=== PATIENT | female | born 1960 | race Caucasian/White ===

== ENCOUNTER 2021-07-05 21:22 | Emergency (ER) | payer OTHER ==
[~2021-07-05] VITALS: Ht 175.3 cm; Wt 100.0 kg
[2021-07-06] MEDS ORDERED: BACTRIM DS1 TAB PO (00:11)
[2021-07-06 00:20] VITALS: BP 130/62
== END 2021-07-06 00:21 | disposition home or self-care (01) ==
LOC: ED 21:22
DX: L03.115 Cellulitis of right lower limb (principal); S80.811A Abrasion, right lower leg, initial encounter; G62.0 Drug-induced polyneuropathy; T45.1X5S Adverse effect of antineoplastic and immunosuppressive drugs, sequela; W17.2XXA Fall into hole, initial encounter; Z85.3 Personal history of malignant neoplasm of breast

== ENCOUNTER 2022-09-02 20:28 | Emergency (ER) | payer MEDICARE, OTHER ==
[2022-09-02] VITALS (10 sets, daily range): BP systolic 109–135; BP diastolic 53–79
[~2022-09-02] VITALS: Ht 175.3 cm; Wt 104.0 kg
[~2022-09-02 20:28] MED LIST: ANASTROZOLE1 MG PO; BACLOFEN5 MG PO; BACTRIM DS1 TAB PO; CYMBALTA60 MG PO; LYRICA150 MG PO; OXYCODO-APAP1 TA2 PO; PROAIR HFA108 MCG/AC PO; WOMEN PO
[2022-09-02 21:35] LABS: HEMATOCRIT 39.2 % (37.0-47.0); HEMOGLOBIN 12.8 g/dl (12.0-16.0); IMMATURE GRANULOCYTES 0.2 % (0.0-5.0); MEAN CELL VOLUME 86.9 fL CALC (80.0-100.0); MEAN CORPUSCULAR HGB 28.4 pG CALC (26.0-32.0); MEAN CORPUSCULAR HGB CONC 32.7 g/dL CAL (32.0-36.0); NEUT# 4.57 thou/uL (2.00-7.15); RED BLOOD COUNT 4.51 mill/uL (4.20-5.60); RED CELL DISTRI WIDTH 13.1 % (11.5-15.5)
[2022-09-02 21:41] LABS: URINE BILIRUBIN - DIPSTICK NEGATIVE (NEGATIVE); URINE BLOOD DIPSTICK NEGATIVE (NEGATIVE); URINE COLOR YELLOW; URINE GLUCOSE - DIPSTICK NEGATIVE (NEGATIVE); URINE KETONE NEGATIVE (NEGATIVE); URINE LEUK ESTERASE NEGATIVE (NEGATIVE); URINE PROTEIN - DIPSTICK NEGATIVE (NEG-TRACE); URINE UROBILINOGEN - DIPSTICK 0.2 E.U./dL (0.2)
[2022-09-02 21:43] LABS: URINE NITRITE - DIPSTICK NEGATIVE (Negative)
[2022-09-02 21:52] LABS: ALBUMIN 4.5 g/dL (3.2-5.0); ALKALINE PHOSPHATASE 75 u/l (38-126); ANION GAP 15 (6-22 (CALC)); BILIRUBIN, TOTAL 0.3 mg/dL (0.0-1.4); BUN 9 mg/dL (8-23); BUN/CREATININE RATIO 15 (12-20 (CALC)); CARBON DIOXIDE 30 mmol/l (22-30); CHLORIDE 100 mmol/l (95-108); CREATININE 0.6 mg/dL (0.5-1.0); GFR FOR AFR.AMER. > 60 ML/MIN (>=60 (CALC)); GFR OTHER RACES > 60 ML/MIN (>=60 (CALC)); POTASSIUM 4.2 mmol/l (3.5-5.1); SGOT/AST 37 u/l (9-36); SODIUM 141 mmol/l (137-146); TOTAL PROTEIN 7.2 g/dL (6.3-8.2)
[2022-09-02] MEDS ORDERED: ZPAK PO (23:07)
== END 2022-09-02 23:21 | disposition home or self-care (01) ==
LOC: ED 20:28
PROVIDERS: Emergency Medicine
DX: J06.9 Acute upper respiratory infection, unspecified (principal); C50.919 Malignant neoplasm of unspecified site of unspecified female breast; Z79.899 Other long term (current) drug therapy; Z20.822 Contact with and (suspected) exposure to COVID-19